=== PATIENT | male | born 1950 | race Hispanic/Latino ===

== ENCOUNTER 2019-05-18 06:25 | Observation (INO) | payer MEDICARE ==
[2019-05-18] MEDS ORDERED: Acetaminophen 325 MG TAB PO PRN (08:52)
[2019-05-18] MEDS ORDERED: Acetaminophen 650 MG Suppository PR PRN (08:52)
[2019-05-18] MEDS ORDERED: Guaifenesin DM 100-10/5 ML UDCUP PO PRN (08:57)
[2019-05-18] MEDS ORDERED: Azithromycin 250 MG TAB PO SCH ×2 (09:00→16:30)
[2019-05-18] MEDS ORDERED: HumaLOG 300 UNITS/3 ML VIAL SC PRN ×2 (09:05)
[2019-05-18] MEDS ORDERED: Insulin Regular 300 UNITS/3 ML VIAL SC PRN (09:05)
[2019-05-18] MEDS ORDERED: Dextrose 50% Abboject 50 ML SYRINGE SLOW IVP PRN (09:05)
[2019-05-18] MEDS ORDERED: Dextrose 5% in Water 1,000 ML IV PRN (09:05)
--- NOTE | 2019-05-18 09:18 | PDOC.HHP ---
Hospitalist HPI - History of Present Illness Cough and congestion x 2 weeks History of Present Illness: The patient is a 68/M that presented to the [place] ER for the above complaint. The patient reports nasal congestion and mild non productive cough x 2 weeks. However, last night, his cough was productive, sputum was thick and green/yellow and he had chills. Denies SOB or chest pain and neck stiffness or body aches. He also report frontal headache and tinnitus in his left ear. Denies any vertigo, neck stiffness and sore throat. Denies any vision changes, dysphagia or extremity weakness. Treated symptoms with coricidin HBP and OTC cough medicines with no improvement of symptoms. For this reason he went to the ER in [place]. ED Course: VS 98.8F, BP 153/71, 106, 22, 95% RA EKG T wave inversion I/AVF Troponin negative CXR increased markings in LLL Flu negative LA 1.3 WBC 11.0 Na133 Given 1L NS x 2 Vanc and Cefepime ASA 324mg In [facility] T 97.7, BP 134/75, 89, 24, 97 RA Hospitalist ROS - Review of Systems Constitutional: reports: chills, sweats Eyes: denies: pain, vision change, conjunctivae inflammation, eyelid inflammation, redness, other ENT: reports: ear pain (Left ear). denies: ear discharge, throat pain Respiratory: reports: cough, sputum. denies: shortness of breath, hemoptysis Cardiovascular: denies: chest pain, palpitations, orthopnea, paroxysmal noc. dyspnea, edema, light headedness, other Gastrointestinal: denies: nausea, vomiting, abdominal pain, diarrhea, constipation, melena, hematochezia, other Genitourinary: denies: dysuria, frequency, incontinence, hematuria, retention, other Musculoskeletal: denies: neck pain, shoulder pain, arm pain, back pain, hand pain, leg pain, foot pain, other Neurological: denies: weakness, numbness, incoordination, change in speech, confusion, seizures, other Hospitalist History - Past Medical History Cardiac: reports: HTN, Hyperlipidemia Musculoskeletal: reports: Osteoarthritis Renal/: reports: Other (CKD III) Endocrine: reports: Diabetes - Past Surgical History Past Surgical History: reports: Appendectomy - Family History Family History: reports: cardiac disorder, diabetes mellitus, hyperlipidemia, hypertension - Social History Smoking Status: Former smoker Alcohol: reports: None Drugs: reports: none Living Situation: Alone Occupation: Lives in [place] [employer] Activity level: independent ambulation - Exam General Appearance: NAD, awake alert Eye: PERRL ENT: normocephalic atraumatic ENT - other findings: Left TM erythematous and bulging Neck: supple, no thyromegaly, no lymphadenopathy Heart: RRR, no murmur, no gallops, no rubs, normal peripheral pulses Respiratory: rhonchi, wheezes (Expiratory wheezes and rhonhi in Left lobes) Extremities: no edema Skin: no rashes Neurological: cranial nerve grossly intact, no focal deficits Musculoskeletal: normal tone, normal strength Psychiatric: normal affect, A&O x 3 Hospitalist Results - Labs Lab results: Troponin I 0.016 ng/mL (< 0.028) 05/18/19 07:02 Laboratory Tests 05/18/19 05/18/19 05/18/19 02:15 02:15 05:15 Lactic Acid 1.3 Troponin I 0.014 Less than 0.010 05/18/19 07:02 Lactic Acid Troponin I 0.016 - EKG Interpretation EKG: NSR, Sinus tachycardia, no ST elevations - Radiology Interpretation Chest x-ray Status: report reviewed by me Hospitalist H&P A/P - Plan Plan: Upon exam, patient is stable, no acute distress, breathing on RA Troponins negative x 3 Impression: dyspnea, productive cough, suspected PNA SIRS criteria Left OM LUZ MARIA Hyponatremia, mild 133 HTN DMII HLD OA CKD III Plan: desk monitor Start azithromycin and rocephin Nebs prn IV gentle hydration AC/HS and mild sliding scale Avoid nephrotoxic medications DVT prophylaxis Restart home meds when reconciled, Hold Losartan for now Full code DESTINEY Rosario, (friend)
[2019-05-18 09:55] LABS: ALT (SGPT) 34 U/L (8-55); AST (SGOT) 33 U/L (5-34); Albumin 3.5 g/dL (3.4-4.8); Alkaline Phosphatase 67 U/L (40-110); Anion Gap 12 mmol/L (10-20); BUN (Urea Nitrogen) 32 mg/dL (8.4-25.7); Bilirubin, Total 0.7 mg/dL (0.2-1.2); Calc. Creatinine Clearance 0 mL/min (70-130); Calcium 9.3 mg/dL (7.8-10.44); Carbon Dioxide 20 mmol/L (23-31); Chloride 107 mmol/L (98-107); Estimated GFR-MDRD 40; Globulin 2.9 g/dL (2.4-3.5); Glucose 92 mg/dL (80-115); Potassium 4.2 mmol/L (3.5-5.1); Protein, Total 6.4 g/dL (5.8-8.1); Sodium 135 mmol/L (136-145)
[2019-05-18 11:36] LABS: Troponin I 0.011 ng/mL (< 0.028)
[2019-05-18 14:17] LABS: Troponin I 0.019 ng/mL (< 0.028)
[2019-05-18 14:43] VITALS: BMI 30.9
[2019-05-18] MEDS: Sodium Chloride 0.9% 1,000 ML IV SCH (17:48)
[2019-05-18] MEDS ORDERED: cefTRIAXone\\ROCEPHIN 1 GM in Sodium Chloride 0.9% 100 ML IVPB SCH (21:00)
[2019-05-18] MEDS: Benzonatate 100 MG CAP PO PRN (21:22)
[2019-05-19 05:00] LABS: #Eosinphils 0.2 thou/uL (0.0-0.7); #Lymphocytes 1.2 thou/uL (1.20-3.40); #Monocytes 0.8 thou/uL (0.11-0.59); #Neutrophils 5.5 thou/uL (1.40-6.50); %Basophils 0.4 % (0.0-1.0); %Eosinophils 2.6 % (0.0-10.0); %Lymphocytes 15.1 % (21.0-51.0); %Monocytes 10.9 % (0.0-10.0); Hemoglobin 11.5 g/dL (14.0-18.0); Mean Corpuscular HGB CONC 34.2 g/dL (32.0-36.0); Mean Corpuscular Hemoglobin 32.7 pg (27.0-31.0); Mean Corpuscular Volume 95.7 fL (78.0-98.0); Mean Platelet Volume 7.7 fL (7.4-10.4); Platelet Count 179 thou/uL (130-400); RBC Distribution Width 12.3 % (11.5-14.5); Red Blood Cell (RBC) Count 3.51 mill/uL (4.70-6.10); White Blood Cell (WBC) Count 7.7 thou/uL (4.8-10.8)
--- NOTE | 2019-05-19 07:25 | PDOC.HOSPP ---
- Subjective Encounter Date: 05/19/19 Encounter Time: 11:20 Subjective: Patient with wheezing and SOB this AM, resolved with neb treatment. Feeling much better. Cough and congestion improved. Not needing O2. Eating and ambulating well. - Objective Vital Signs & Weight: Vital Signs (12 hours) Temp Pulse Resp BP BP Pulse Ox 05/19/19 03:54 98.1 F 81 18 116/76 95 05/18/19 19:45 98.4 F 89 16 137/63 95 Weight Weight 216 lb I&O: 05/18/19 05/19/19 05/20/19 06:59 06:59 06:59 Intake Total 1288 Balance 1288 Result Diagrams: 05/19/19 04:42 05/18/19 07:02 Additional Labs: Accuchecks 05/19/19 05/18/19 05/18/19 07:01 20:45 16:46 POC Glucose 99 139 H 95 Hospitalist ROS - Review of Systems Constitutional: denies: fever, chills Respiratory: reports: cough, wheezing. denies: shortness of breath Cardiovascular: denies: chest pain, palpitations Gastrointestinal: denies: nausea, vomiting, abdominal pain Genitourinary: denies: dysuria - Medication Medications: Active Medications Generic Name Dose Route Start Last Admin Trade Name Freq PRN Reason Stop Dose Admin Azithromycin 500 mg 05/18/19 09:00 05/18/19 17:49 Zithromax PO 05/21/19 09:01 Not Given DAILY SURJIT Benzonatate 100 mg 05/18/19 08:58 05/18/19 21:22 Tessalon PO 100 mg TIDPRN PRN Administration Cough Ceftriaxone Sodium 1 gm/ 100 mls @ 200 mls/hr 05/18/19 21:00 05/18/19 21:22 Sodium Chloride IVPB 100 mls 2100 SURJIT Administration Sodium Chloride 1,000 mls @ 50 mls/hr 05/18/19 09:45 05/18/19 17:48 Normal Saline 0.9% IV 1,000 mls .Q20H SURJIT Administration - Exam General Appearance: NAD, awake alert ENT: moist mucosa Heart: RRR, no murmur, no gallops, no rubs Respiratory: CTAB, no wheezes, no rales, no ronchi Gastrointestinal: soft, non-tender, non-distended, normal bowel sounds Extremities: no edema Psychiatric: normal affect, normal behavior, A&O x 3 Hosp A/P (1) Respiratory tract congestion with cough Code(s): R05 - COUGH Status: Acute Plan: asthmatic bronchitis vs. early pneumonia on CXR (2) Otitis media, left Code(s): H66.92 - OTITIS MEDIA, UNSPECIFIED, LEFT EAR Status: Acute (3) Acute on chronic renal failure Code(s): N17.9 - ACUTE KIDNEY FAILURE, UNSPECIFIED; N18.9 - CHRONIC KIDNEY DISEASE, UNSPECIFIED Status: Acute (4) HTN (hypertension) Code(s): I10 - ESSENTIAL (PRIMARY) HYPERTENSION Status: Chronic (5) DM type 2 (diabetes mellitus, type 2) Status: Chronic (6) HLD (hyperlipidemia) Code(s): E78.5 - HYPERLIPIDEMIA, UNSPECIFIED Status: Chronic - Plan No evidence of sepsis at this time. Minimal changes on CXR that could indicate pneumonia. Will switch to oral abx, given inhaler, and discharge home.
[2019-05-19] MEDS ORDERED: Cefdinir 300 MG CAP PO SCH (09:00)
[2019-05-19] MEDS ORDERED: Saccharomyces boulardii 250 MG CAP PO SCH (09:00)
[2019-05-19] MEDS ORDERED: Azithromycin 250 MG TAB PO SCH (09:00)
[2019-05-19] MEDS: Sodium Chloride 0.9% 1,000 ML IV SCH (10:14)
[2019-05-19] MEDS: Benzonatate 100 MG CAP PO PRN (10:16)
[2019-05-19 12:04] VITALS: BP 108/55; TEMP 98.3
--- NOTE | 2019-05-20 09:23 | DIS ---
DATE OF ADMISSION: 05/18/2019 DATE OF DISCHARGE: 05/19/2019 PRIMARY CARE PHYSICIAN: Dr. Yoo is retiring, we are going to reestablish in [place]. REASON FOR ADMISSION: Possible sepsis. DISCHARGE DIAGNOSES: 1. Sepsis, ruled out. 2. Acute asthmatic bronchitis versus early pneumonia. 3. Otitis media. 4. Acute on chronic renal failure, improved. 5. Diabetes mellitus, type 2. 6. Hypertension. 7. Hyperlipidemia. PROCEDURES: None. CONSULTATIONS: None. SUMMARY OF HOSPITAL COURSE: This is a 68-year-old white male without any history of asthma or COPD and no smoking history, who presented with nasal congestion and mild cough for 2 weeks. Then, in the last 3 days, he had severe worsening chest congestion, cough, shortness of breath, ringing in his ears and stuffiness in his head. Sputum was productive of thick green yellow sputum and he had some chills, but no fevers. The patient was seen in the [place] [facility]. He had mild criteria for SIRS and a questionable infiltrate on his chest x-ray, so he was given antibiotics and 30 mL/kg of IV fluids. He had some mild increased worsening of his chronic renal failure. His creatinine was up, this improved with the fluids and he never had an elevated lactic acid and had no fever. He was transferred here and observed overnight. His vital signs have been stable. He has been off any oxygen. He did have some wheezing and shortness of breath this morning. This resolved completely with nebulizing treatment. His chest x-ray per the radiologist did show a possibility of mild infiltrate in the base. The patient is doing much better and is being switched over to oral antibiotics and is cleared to discharge home. DISCHARGE MANAGEMENT: Discharged home. FOLLOWUP: Follow up with the primary care doctor in 7 days. ACTIVITY: As tolerated. DIET: Diabetic diet. DISCHARGE MEDICATIONS: 1. Albuterol inhaler 2 puffs every 6 hours as needed for coughing, wheezing, or shortness of breath. 2. Azithromycin 250 mg daily for 3 more days to complete the course. 3. Cefdinir 300 mg twice a day for 7 more days. 4. Tessalon 100 mg 3 times a day as needed for cough, 30 capsules dispensed. 5. Guaifenesin DM 15 mL every 4 hours as needed for cough and congestion, 150 mL dispensed. 6. Aspirin 81 mg daily. 7. Vitamin D3 of 50 mcg daily. 8. Colchicine 0.6 mg daily. 9. Jardiance 5 mg daily. 10. Fenofibrate 80 mg daily. 11. Glimepiride 2 mg daily. 12. Glucosamine/chondroitin 270 one capsule twice a day. 13. Iron 27 mg daily. 14. Losartan 50 mg at night. 15. Protonix 40 mg daily. 16. Pioglitazone 30 mg daily. 17. Rosuvastatin 10 mg daily. 18. Systane gel drops to the eyes as needed. 19. Simvastatin 10 mg at night. We will discontinue this as he is already on the rosuvastatin. Job ID: [id number]
== END 2019-05-19 13:29 | disposition home or self-care (01) ==
LOC: ERS 06:25 → ERHOLD 07:17 → 2SW 14:31
PROVIDERS: ADMIT Emergency Medicine; ATTEND Emergency Medicine
DX: R05 Cough (principal); R09.81 Nasal congestion; H66.92 Otitis media, unspecified, left ear; I12.9 Hypertensive chronic kidney disease with stage 1 through stage 4 chronic kidney disease, or unspecified chronic kidney disease; E11.22 Type 2 diabetes mellitus with diabetic chronic kidney disease; N18.3 Chronic kidney disease, stage 3 (moderate); N17.9 Acute kidney failure, unspecified; E78.5 Hyperlipidemia, unspecified; M19.90 Unspecified osteoarthritis, unspecified site; E87.1 Hypo-osmolality and hyponatremia; Z87.891 Personal history of nicotine dependence; Z79.82 Long term (current) use of aspirin; Z79.84 Long term (current) use of oral hypoglycemic drugs; Z79.899 Other long term (current) drug therapy
CPT/HCPCS: 80053; 82962 ×2; 84484; 85025; 94640; 96361 ×2; 96365; 97139; 99285; G0378 ×3; 36415; 36416; J0696; J3490; J7620